=== PATIENT | female | born 1960 | race Caucasian/White ===

== ENCOUNTER 2024-07-02 06:17 | Day surgery (SDC) | payer OTHER, SELFPAY ==
[2024-06-22 09:03] LABS: Hematocrit 39.8 % (37.0-47.0); Hemoglobin 13.5 g/dL (12.0-16.0); Mean Corp Hgb Conc. 33.9 g/dL (33.0-37.0); Mean Corpuscular Hgb 31.9 pg (27.0-31.0); Mean Corpuscular Volume 94.1 fL (81.0-99.0); Mean Platelet Volume 9.9 fL (7.4-10.4); Platelet Count 292 10^3/uL (130-400); Red Blood Cell Count 4.23 10^6/uL (4.20-5.40); Red Cell Dist. Width 13.1 % (11.5-14.5); White Blood Cell Count 5.8 10^3/uL (4.8-10.8)
[2024-06-22 10:06] LABS: Blood Urea Nitrogen 18 mg/dl (7-17); Calcium 9.7 mg/dl (8.4-10.2); Carbon Dioxide 28 mmol/L (22-30); Chloride 102 mmol/L (98-107); Glucose 77 mg/dl (70-99); Potassium 4.4 mmol/L (3.5-5.1); Sodium 138 mmol/L (135-145); eGFR > 60.00
[2024-06-22 10:21] VITALS: BMI 23.1
[2024-07-02] VITALS (7 sets, daily range): BP systolic 89–136; BP diastolic 60–94; BMI 23.1
[2024-07-02] MEDS: NORMOSOL-R 1000 IV (11:38)
== END 2024-07-02 14:25 | disposition home or self-care (01) ==
LOC: SDS 06:17
PROVIDERS: ATTENDING PHYSICIAN Podiatrist Foot & Ankle Surgery; FAMILY PHYSICIAN Family Medicine
DX: M20.5X2 Other deformities of toe(s) (acquired), left foot (principal); M79.675 Pain in left toe(s)
CPT/HCPCS: 28285; 88304; 88311; 36415; 80048; 85027; C1713

== ENCOUNTER 2025-07-31 10:07 | Emergency (ER) | payer SELFPAY ==
[2025-07-31 10:13] VITALS: BP 135/93
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
== END 2025-07-31 12:06 | disposition home or self-care (01) ==
LOC: EMR 10:07
PROVIDERS: EMERGENCY PHYSICIAN Emergency Medicine; FAMILY PHYSICIAN Family Medicine
DX: S00.81XA Abrasion of other part of head, initial encounter (principal); V89.2XXA Person injured in unspecified motor-vehicle accident, traffic, initial encounter; Y92.410 Unspecified street and highway as the place of occurrence of the external cause; Z90.12 Acquired absence of left breast and nipple
CPT/HCPCS: 99284; 70450; 72125